=== PATIENT | male | born 1995 | race Caucasian/White ===

== ENCOUNTER 2018-05-08 10:55 | Emergency (ER) | payer OTHER ==
[2018-05-08 11:04] VITALS: BP 136/85
[2018-05-08] MEDS ORDERED: cephALEXin 250 MG CAPSULE PO STA (11:40)
[2018-05-08] MEDS ORDERED: IBUPROFEN 800 MG TABLET PO STA (11:40)
[2018-05-08] MEDS ORDERED: DEXAMETHASONE 10 MG/ML VIAL PO STA (11:40)
--- NOTE | 2018-05-08 11:43 | ED Physician Documentation ---
PD HPI HEENT - Stated complaint Stated Complaint: THROAT PX - Chief complaint Chief Complaint: Heent - History obtained from History obtained from: Patient - History of Present Illness Timing - onset: How many days ago (2) Timing - duration: Days (2) Timing - details: Still present Location: Throat Worsens: [place] Associated symptoms: Swollen nodes Similar symptoms before: Has not had sx before - Additional information Additional information: The patient is a 23-year-old male who presents with sore throat of 2 days duration. He has felt chills, but is unaware of fever. He complains of swollen anterior cervical nodes. He has mild associated headache. He denies earaches or cough. He denies history of similar symptoms in the past. He recently traveled home from [place]. Review of Systems Constitutional: reports: Chills, Myalgias Eyes: denies: Irritation Ears: denies: Ear pain Nose: denies: Congestion Throat: reports: Sore throat Cardiac: denies: Chest pain / pressure Respiratory: denies: Dyspnea, Cough GI: denies: Abdominal Pain, Nausea, Vomiting : denies: Dysuria Skin: denies: Rash Neurologic: reports: Headache PD PAST MEDICAL HISTORY - Past Medical History Past Medical History: No Cardiovascular: None Respiratory: None Endocrine/Autoimmune: None - Past Surgical History Past Surgical History: Yes - Present Medications Home Medications: Ambulatory Orders Medication Instructions Recorded Confirmed Acetaminophen [Tylenol] 650 mg PO ONCE 05/08/18 05/08/18 Hydrocodone/Acetaminophen 1 - 2 each PO Q6H PRN #14 tablet 05/08/18 [Hydrocodon-Acetaminophen 5-325] Ibuprofen 400 mg PO ONCE 05/08/18 05/08/18 cephALEXin [Cephalexin] 500 mg PO TID #20 tablet 05/08/18 - Allergies Allergies/Adverse Reactions: Allergies Allergy/AdvReac Type Severity Reaction Status Date / Time No Known Drug Allergies Allergy Verified 05/08/18 11:04 - Social History Does the pt smoke?: No Smoking Status: Never smoker Does the pt drink ETOH?: Yes Does the pt have substance abuse?: No - Immunizations Immunizations are current?: Yes PD ED PE NORMAL - Vitals Vital signs reviewed: Yes (Borderline systolic hypertension.) - General General: Alert and oriented X 3, Well developed/nourished, Other (Appears uncomfortable.) - HEENT HEENT: Atraumatic, Ears normal, Other (Oropharynx is erythematous, with enlarged tonsils with exudates bilaterally, more on the right than the left.) - Neck Neck: Supple, no meningeal sign, Other (Enlarged anterior cervical nodes bilaterally.) - Cardiac Cardiac: RRR, No murmur - Respiratory Respiratory: No respiratory distress, Clear bilaterally - Abdomen Abdomen: Soft, Non tender - Back Back: No CVA TTP - Derm Derm: No rash - Neuro Neuro: Alert and oriented X 3, No motor deficit, Normal speech Results - Vitals Vitals: Vital Signs - 24 hr 05/08/18 11:02 Temperature 37.4 C Heart Rate 119 H Respiratory 18 Rate Blood Pressure 136/85 H O2 Saturation 97 Oxygen O2 Source Room air - Labs Labs: Laboratory Tests 05/08/18 05/08/18 11:09 12:33 Infectious Emmet Assay NEGATIVE Group A Strep Rapid Negative PD MEDICAL DECISION MAKING - ED course Complexity details: reviewed results, re-evaluated patient, considered differential, d/w patient, d/w family ED course: The patient's presentation is most consistent with acute tonsillitis. His examination does not suggest peritonsillar abscess. Rapid strep screen was negative, as well as Monospot. However because of the beefy-red enlarged tonsils with bilateral exudates, the patient will be treated with antibiotic therapy, pending results of throat culture. Treatment in the emergency department included administration of cephalexin 500 mg orally, dexamethasone 10 mg orally, and ibuprofen 800 mg orally. He is being discharged with prescriptions for cephalexin and for Vicodin, 14 tablets. 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 Departure - Departure Disposition: 01 Home, Self Care Clinical Impression: Acute tonsillitis Qualifiers: Pharyngitis/tonsillitis etiology: other specified organisms Qualified Code(s): J03.80 - Acute tonsillitis due to other specified organisms Condition: Stable Instructions: ED Tonsillitis Follow-Up: ROBYN Andersen [Provider Group] Prescriptions: cephALEXin [Cephalexin] 500 mg PO TID #20 tablet Hydrocodone/Acetaminophen [Hydrocodon-Acetaminophen 5-325] 1 - 2 each PO Q6H PRN #14 tablet PRN Reason: pain Comments: Gargle with cool liquids. Take cephalexin 3 times daily as prescribed. You can use ibuprofen, up to 800 mg 3 times daily for its anti-inflammatory effect. He can also use Vicodin as prescribed if needed for pain. Follow-up with your primary physician within 1 week. Call to schedule appointment. Return to the emergency department if you develop increasing difficulty swallowing, or otherwise worsening symptoms. Forms: Activity restrictions Discharge Date/Time: 05/08/18 13:11
[2018-05-08] MEDS ORDERED: CHERRY SYRUP 10 ML UDC PO ONE (11:46)
== END 2018-05-08 13:11 | disposition home or self-care (01) ==
LOC: ED 10:55
DX: J03.80 Acute tonsillitis due to other specified organisms (principal)
CPT/HCPCS: 36415; 86308; 87070; 87430; 99283; A9270